=== PATIENT | female | born 1970 | race Caucasian/White ===

== ENCOUNTER 2018-04-27 14:48 | Emergency (ER) | payer BC, OTHER ==
[~2018-04-27] VITALS: Ht 167.6 cm; Wt 100.0 kg
[2018-04-27 15:23] LABS: BASOPHILS # (AUTO) 0.04 x10^3/uL (0-0.1); BASOPHILS % (AUTO) 1 % (0-1); EOSINOPHILS # (AUTO) 0.19 x10^3/uL (0-0.4); EOSINOPHILS % (AUTO) 2 % (1-7); LYMPHOCYTES # (AUTO) 1.04 x10^3/uL (1-3.4); LYMPHOCYTES % (AUTO) 13 % (22-44); MD NO; MEAN CORPUSCULAR HEMOGLOBIN 24.6 pg (27.0-34.8); MEAN CORPUSCULAR HGB CONC 32.8 g/dL (32.4-35.8); MEAN CORPUSCULAR VOLUME 75.2 fL (80-100); MEAN PLATELET VOLUME 6.8 fL (7.4-10.4); MONOCYTES # (AUTO) 0.37 x10^3/uL (0.2-0.8); MONOCYTES % (AUTO) 5 % (2-9); NEUTROPHILS # (AUTO) 6.29 x10^3/uL (1.8-6.8); NEUTROPHILS % (AUTO) 79 % (42-75); PLATELET COUNT 485 x10^3/uL (130-400); RED BLOOD COUNT 5.07 x10^6/uL (3.82-5.3); RED CELL DISTRIBUTION WIDTH 15.5 % (9.6-15.2)
[2018-04-27 15:33] LABS: ALBUMIN 3.2 g/dL (3.4-5.0); ANION GAP 9 mmol/L (5-15); CALCIUM 8.6 mg/dL (8.5-10.1); CHLORIDE 104 mmol/L (98-107); CREATININE 0.89 mg/dL (0.55-1.02)
[2018-04-27 16:39] VITALS: BP 151/85
== END 2018-04-27 18:01 | disposition home or self-care (01) ==
LOC: ED 15:52
DX: S92.251A Displaced fracture of navicular [scaphoid] of right foot, initial encounter for closed fracture (principal); E11.649 Type 2 diabetes mellitus with hypoglycemia without coma; X58.XXXA Exposure to other specified factors, initial encounter; Y93.89 Activity, other specified; Y92.89 Other specified places as the place of occurrence of the external cause; Y99.8 Other external cause status
CPT/HCPCS: 36415; 80048; 82040; 84550; 85025; 99285

== ENCOUNTER 2019-09-28 05:14 | Day surgery (SDC) | payer OTHER ==
[~2019-09-28] VITALS: Ht 167.6 cm; Wt 101.0 kg
[~2019-09-28 05:14] MED LIST: LACT1CAP35 PO; LEVO25TA4 PO; LISI5TAB7 PO; METF500T27 PO
[2019-09-28 05:40] VITALS: BP 136/89
[2019-09-28] MEDS ORDERED: LACTATED RINGERS 1,000 ML IV SCH (05:43)
[2019-09-28] MEDS ORDERED: LIDOCAINE 1%, 20ML ONE (06:22)
[2019-09-28] MEDS ORDERED: BUPIVACAINE/PF 0.5% ONE (06:22)
[2019-09-28] MEDS ORDERED: MIDAZOLAM 1 MG/ML, 2ML ONE (06:36)
[2019-09-28] MEDS ORDERED: FENTANYL PF 100 MCG/2ML ONE (06:37)
[2019-09-28] MEDS ORDERED: VANCOMYCIN 1,000 MG ONE (06:59)
[2019-09-28] MEDS ORDERED: HYDROmorphone 2 MG/ML, 1ML IVPush PRN (07:00)
[2019-09-28] MEDS ORDERED: FENTANYL PF 100 MCG/2ML IV PRN (07:00)
[2019-09-28] MEDS ORDERED: LORazepam 2 MG/ML, 1ML IVPush PRN (07:00)
[2019-09-28] MEDS ORDERED: OXYcodone 5 MG/5 ML ORAL.SOL UDC PO PRN (07:00)
[2019-09-28] MEDS ORDERED: MEPERIDINE/PF 25MG/ML,1ML IVPush PRN (07:00)
[2019-09-28] MEDS ORDERED: KETOROLAC 30 MG/1 ML ONE (07:03)
[2019-09-28] MEDS ORDERED: CEFAZOLIN 1,000 MG ONE (07:03)
[2019-09-28] MEDS ORDERED: ONDANSETRON 2MG/ML, 2ML ONE (07:03)
[2019-09-28] MEDS ORDERED: PROPOFOL 10 MG/ML, 20ML ONE (07:03)
[2019-09-28] MEDS ORDERED: GLYCOPYRROLATE 0.2MG/1ML, 5ML ONE (07:03)
[2019-09-28] MEDS ORDERED: DEXAMETHASONE 4 MG/ML, 1ML ONE (07:03)
[2019-09-28] MEDS ORDERED: ROCURONIUM 10 MG/ML,10ML ONE (07:03)
[2019-09-28] MEDS ORDERED: NEOSTIGMINE 1 MG/ML, 10ML ONE (07:03)
[2019-09-28] MEDS ORDERED: PHENYLEPHRINE 10 MG/ML ONE (07:03)
[2019-09-28] MEDS ORDERED: SUCCINYLCHOLINE 20 MG/ML, 10ML ONE (07:03)
[2019-09-28] MEDS ORDERED: OXYcodone 5 MG/5 ML ORAL.SOL UDC ONE (09:00)
== END 2019-09-28 10:40 | disposition home or self-care (01) ==
LOC: OUT 05:14
PROVIDERS: ATTEND Orthopaedic Surgery
DX: T81.42XA Infection following a procedure, deep incisional surgical site, initial encounter (principal); L02.611 Cutaneous abscess of right foot; E11.9 Type 2 diabetes mellitus without complications; I10 Essential (primary) hypertension; E78.5 Hyperlipidemia, unspecified; Z79.899 Other long term (current) drug therapy; Z87.891 Personal history of nicotine dependence; Z98.890 Other specified postprocedural states; Z82.49 Family history of ischemic heart disease and other diseases of the circulatory system; Y83.8 Other surgical procedures as the cause of abnormal reaction of the patient, or of later complication, without mention of misadventure at the time of the procedure
CPT/HCPCS: 20240; 20680; 73620; 82962; 87015; 87070; 87075; 87077; 87102; 87116; 87147; 87176; 87186; 87205; 87206; 88304; 88311; 93005; J0330; J0690; J1100; J1885; J2250; J2370; J2405; J2704; J2710; J3010; J3370; J7120; 76000

== ENCOUNTER 2020-02-02 11:23 | Day surgery (SDC) | payer OTHER ==
[2020-01-31 13:33] LABS: ALANINE AMINOTRANSFERASE 15 U/L (12-78); ALBUMIN 2.9 g/dL (3.4-5.0); ANION GAP 7 mmol/L (5-15); CHLORIDE 111 mmol/L (98-107)
[2020-01-31 13:35] LABS: ALKALINE PHOSPHATASE 157 U/L (45-117); BILIRUBIN,TOTAL 0.3 mg/dL (0.2-1.0); CREATININE 1.09 mg/dL (0.55-1.02); TOTAL PROTEIN 7.8 g/dL (6.4-8.2)
[~2020-02-02] VITALS: Ht 167.6 cm; Wt 103.6 kg
[~2020-02-02 11:23] MED LIST changes: +LEVO137T3 PO
[2020-02-02 11:45] VITALS: BP 142/87
[2020-02-02] MEDS ORDERED: LACTATED RINGERS 1,000 ML IV SCH (11:47)
[2020-02-02] MEDS ORDERED: CHLORHEXIDINE 15 ML UDC MM ONE (12:00)
[2020-02-02] MEDS ORDERED: ACETAMINOPHEN 500 MG TABLET PO ONE (12:00)
[2020-02-02] MEDS ORDERED: SCOPOLAMINE 1MG PATCH TD SCH (12:00)
[2020-02-02] MEDS ORDERED: MIDAZOLAM 1 MG/ML, 2ML ONE (12:37)
[2020-02-02] MEDS ORDERED: FENTANYL PF 250 MCG/5ML ONE (12:37)
[2020-02-02] MEDS ORDERED: TOBRAMYCIN SULFATE 1.2 GM IMP ONE (13:21)
[2020-02-02] MEDS ORDERED: VANCOMYCIN 1,000 MG ONE (13:21)
[2020-02-02] MEDS ORDERED: PHENYLEPHRINE 10 MG/ML ONE (13:47)
[2020-02-02] MEDS ORDERED: LIDOCAINE PF 2%, 5ML ONE (13:47)
[2020-02-02] MEDS ORDERED: LABETALOL 5MG/ML, 20ML IV PRN (14:30)
[2020-02-02] MEDS ORDERED: ONDANSETRON 2MG/ML, 2ML IVPush PRN (14:30)
[2020-02-02] MEDS ORDERED: HYDROmorphone 1 MG/ML, 1ML INJ IVPush PRN (14:30)
[2020-02-02] MEDS ORDERED: OXYcodone 5 MG/5 ML ORAL.SOL UDC PO PRN (14:30)
[2020-02-02] MEDS ORDERED: hydrALAzine 20 MG/ML, 1ML IV PRN (14:30)
[2020-02-02] MEDS ORDERED: PROMETHAZINE 25 MG/ML, 1ML IVPush PRN (14:30)
[2020-02-02] MEDS ORDERED: PROMETHAZINE 25 MG SUPP PR PRN (14:30)
[2020-02-02] MEDS ORDERED: CEFAZOLIN 1,000 MG ONE (15:42)
[2020-02-02] MEDS ORDERED: ONDANSETRON 2MG/ML, 2ML ONE ×2 (15:42→16:33)
[2020-02-02] MEDS ORDERED: DEXAMETHASONE 4 MG/ML, 1ML ONE (15:42)
[2020-02-02] MEDS ORDERED: PROPOFOL 10 MG/ML, 20ML ONE (15:42)
[2020-02-02] MEDS ORDERED: FENTANYL PF 100 MCG/2ML ONE ×2 (15:42→16:09)
[2020-02-02] MEDS ORDERED: BUPIVACAINE/PF 0.5% ONE (15:58)
[2020-02-02] MEDS ORDERED: LIDOCAINE 1%, 20ML ONE (15:58)
[2020-02-02] MEDS ORDERED: OXYcodone 5 MG/5 ML ORAL.SOL UDC ONE (16:09)
[2020-02-02] MEDS: FENTANYL PF 100 MCG/2ML IV PRN ×2 (16:10→16:28)
[2020-02-02] MEDS ORDERED: PROMETHAZINE 25 MG/ML, 1ML ONE (16:56)
== END 2020-02-02 18:02 | disposition home or self-care (01) ==
LOC: OUT 11:23
PROVIDERS: ATTEND Orthopaedic Surgery
DX: T84.84XA Pain due to internal orthopedic prosthetic devices, implants and grafts, initial encounter (principal); Z11.59 Encounter for screening for other viral diseases; M14.679 Charcot's joint, unspecified ankle and foot; I10 Essential (primary) hypertension; E11.9 Type 2 diabetes mellitus without complications; E66.9 Obesity, unspecified; Y83.8 Other surgical procedures as the cause of abnormal reaction of the patient, or of later complication, without mention of misadventure at the time of the procedure; Z79.899 Other long term (current) drug therapy; Z87.891 Personal history of nicotine dependence; Z68.36 Body mass index [BMI] 36.0-36.9, adult; Z98.890 Other specified postprocedural states; Z79.2 Long term (current) use of antibiotics
CPT/HCPCS: 11981; 20240; 20680; 36415; 73590; 76000; 80053; 82962; 87070; 87075; 87102; 87116; 87176; 87205; 87206; 87635; 88304; 88311; 93005; C1713; J0690; J1100; J2250; J2370; J2405; J2704; J3010; J3260; J3370; J7120

== ENCOUNTER → 2020-03-11 | Outpatient (CLI) | payer OTHER | END | disposition home or self-care (01) | LOC: STAR 13:57 | PROVIDERS: ATTEND Orthopaedic Surgery | DX: Z01.812 Encounter for preprocedural laboratory examination (principal); S82.291A Other fracture of shaft of right tibia, initial encounter for closed fracture; X58.XXXA Exposure to other specified factors, initial encounter; Y93.89 Activity, other specified; Y92.89 Other specified places as the place of occurrence of the external cause; Y99.8 Other external cause status; Z20.828 Contact with and (suspected) exposure to other viral communicable diseases | CPT/HCPCS: 36415; 87635 ==

== ENCOUNTER 2020-03-15 05:28 | Day surgery (SDC) | payer OTHER ==
[~2020-03-15] VITALS: Ht 167.6 cm; Wt 106.2 kg
[2020-03-15] MEDS ORDERED: LACTATED RINGERS 1,000 ML IV SCH (06:04)
[2020-03-15 06:07] VITALS: BP 140/85
[2020-03-15] MEDS ORDERED: FENTANYL PF 250 MCG/5ML ONE (06:20)
[2020-03-15] MEDS ORDERED: MIDAZOLAM 1 MG/ML, 2ML ONE (06:20)
[2020-03-15] MEDS ORDERED: BUPIVACAINE/PF 0.5% ONE (06:20)
[2020-03-15] MEDS ORDERED: GLYCOPYRROLATE 0.2MG/1ML, 5ML ONE (06:21)
[2020-03-15] MEDS ORDERED: PROPOFOL 10 MG/ML, 20ML ONE (06:21)
[2020-03-15] MEDS ORDERED: CEFAZOLIN 1,000 MG ONE (06:21)
[2020-03-15] MEDS ORDERED: LIDOCAINE 1%, 20ML ONE (06:21)
[2020-03-15] MEDS ORDERED: ONDANSETRON 2MG/ML, 2ML ONE (06:21)
[2020-03-15] MEDS ORDERED: NEOSTIGMINE 1 MG/ML, 10ML ONE (06:21)
[2020-03-15] MEDS ORDERED: DEXAMETHASONE 4 MG/ML, 1ML ONE (06:21)
[2020-03-15] MEDS ORDERED: ROPIvacaine/PF 0.2%, 20 ML ONE ×2 (06:23)
[2020-03-15] MEDS ORDERED: CHLORHEXIDINE 15 ML UDC MM ONE (06:30)
[2020-03-15] MEDS ORDERED: HYDROmorphone 1 MG/ML, 1ML INJ IVPush PRN (07:00)
[2020-03-15] MEDS ORDERED: LABETALOL 5MG/ML, 20ML IV PRN (07:00)
[2020-03-15] MEDS ORDERED: ACETAMINOPHEN 325 MG TABLET PO PRN (07:00)
[2020-03-15] MEDS ORDERED: PROMETHAZINE 25 MG/ML, 1ML IVPush PRN (07:00)
[2020-03-15] MEDS ORDERED: OXYcodone 5 MG/5 ML ORAL.SOL UDC PO PRN (07:00)
[2020-03-15] MEDS ORDERED: hydrALAzine 20 MG/ML, 1ML IV PRN (07:00)
[2020-03-15] MEDS ORDERED: MEPERIDINE/PF 25MG/0.5ML IVPush PRN (07:00)
[2020-03-15] MEDS ORDERED: HALOPERIDOL 5 MG/ML IV PRN (07:00)
[2020-03-15] MEDS ORDERED: FENTANYL PF 100 MCG/2ML IV PRN (07:00)
[2020-03-15] MEDS ORDERED: morphine SULFATE 10 MG/ML, 1ML IVPush PRN (07:00)
[2020-03-15] MEDS ORDERED: VANCOMYCIN 1,000 MG ONE (08:37)
[2020-03-15] MEDS ORDERED: PROMETHAZINE 25 MG/ML, 1ML ONE (10:49)
== END 2020-03-15 12:15 | disposition home or self-care (01) ==
LOC: OUT 05:28
PROVIDERS: ATTEND Orthopaedic Surgery
DX: E11.610 Type 2 diabetes mellitus with diabetic neuropathic arthropathy (principal); G89.18 Other acute postprocedural pain; E03.9 Hypothyroidism, unspecified; I10 Essential (primary) hypertension; Z79.84 Long term (current) use of oral hypoglycemic drugs; Z79.890 Hormone replacement therapy; Z79.899 Other long term (current) drug therapy; Z98.890 Other specified postprocedural states
CPT/HCPCS: 20902; 27870; 64445; 64447; 73620; 82962; 87070; 87075; 87077; 87176; 87186; 87205; 88304; 88311; C1713; C1762; C1769; J0690; J1100; J2250; J2405; J2550; J2704; J2710; J2795; J3010; J3370; J7120; 76000